=== PATIENT | female | born 1995 | race Caucasian/White ===

== ENCOUNTER 2020-08-12 13:48 | Emergency (ER) | payer OTHER ==
[~2020-08-12] VITALS: Ht 170.2 cm; Wt 86.4 kg
[2020-08-12] MEDS ORDERED: MACR100C43 PO (15:04)
[2020-08-12 15:09] VITALS: BP 132/81
== END 2020-08-12 15:11 | disposition home or self-care (01) ==
LOC: M ED 13:48
DX: N30.00 Acute cystitis without hematuria (principal); Z88.6 Allergy status to analgesic agent

== ENCOUNTER → 2020-12-12 | Outpatient (CLI) | payer OTHER ==
[~2020-12-12] MED LIST: MACR100C43 PO
[2020-12-12 12:17] LABS: FREE T4 0.96 NG/DL (0.76-1.46); THYROID STIMULATING HORMONE 3.94 uIU/ML (0.358-3.740)
[2020-12-12 12:37] LABS: PROGESTERONE 24.87 NG/ML
[2020-12-12 12:39] LABS: FOLLICLE STIMULATING HORMONE 1.7 mIU/mL; LUTEINIZING HORMONE 0.2 mIU/mL
== END ==
LOC: M PLALAB 08:41
PROVIDERS: ATTEND Specialist
DX: N92.6 Irregular menstruation, unspecified (principal)
CPT/HCPCS: 36415; 83001; 83002; 84144; 84146; 84439; 84443; G0463

== ENCOUNTER → 2020-12-14 | Outpatient (CLI) | payer OTHER | LOC: M PLALAB 13:13 | PROVIDERS: ATTEND Specialist | DX: N92.6 Irregular menstruation, unspecified (principal) ==

== ENCOUNTER → 2021-03-27 | Outpatient (CLI) | payer OTHER ==
[~2021-03-27] MED LIST changes: +ASCO1TAB3 PO; +CLAR10CA3 PO; +FAMO10TA53 PO; +MULTTAB20 PO; +ONDA4TAB6 PO; +REGL10TA6 PO
[2021-03-27 13:34] LABS: HEMATOCRIT 38.7 % (36.0-47.0); HEMOGLOBIN 13.2 g/dl (12.0-15.5); MEAN CORPUSCULAR HEMOGLOBIN 29.5 pg (27.0-33.0); MEAN CORPUSCULAR HGB CONC 34.1 g/dl (32.0-36.5); MEAN CORPUSCULAR VOLUME 86.6 fl (80.0-96.0); PLATELET COUNT, AUTOMATED 257 10^3/uL (150-450); RED BLOOD COUNT 4.47 10^6/uL (4.00-5.40); WHITE BLOOD COUNT 10.2 10^3/uL (4.0-10.0)
[2021-03-27 14:52] LABS: HEPATITIS C VIRUS ABY INDEX 0.1 INDEX (<0.8); HIV 1&2 SCREEN CENTAUR NEGATIVE (NEGATIVE)
[2021-03-27 15:11] LABS: GC DNA AMPLIFICATION NEGATIVE (NEGATIVE)
== END ==
LOC: M PLALAB 10:36
PROVIDERS: ATTEND Specialist
DX: Z34.02 Encounter for supervision of normal first pregnancy, second trimester (principal); Z3A.00 Weeks of gestation of pregnancy not specified

== ENCOUNTER → 2021-04-16 | Outpatient (CLI) | payer OTHER ==
[~2021-04-16] MED LIST changes: -ASCO1TAB3 PO; -CLAR10CA3 PO; -FAMO10TA53 PO; -MULTTAB20 PO; -ONDA4TAB6 PO; -REGL10TA6 PO
--- NOTE | 2021-04-16 17:52 | REP ---
INDICATION: ANATOMY COMPARISON: None. TECHNIQUE: Transabdominal obstetrical ultrasound with color Doppler evaluation. FINDINGS: Examination demonstrates a single live intrauterine in variable presentation. motion is identified by technologist. Placenta is noted anteriorly and grade 0 without evidence for placenta previa or abruption. Amniotic fluid volume is normal. Cervix measures 3.1 cm in length and appears closed. The technologist describes the uterus as being retroverted and included 3.3 cm and 5.7 cm fibroids. Selected gestational age: 21 weeks 4 days with EZE 08/23/2021. Gestational age by current measurements 21 weeks 1 day with EZE 08/26/2021. FHR equals 152 beats per minute. Estimated weight 407 grams (27thpercentile). Anatomical assessment was significantly limited due to the retroverted uterus and variable presentation of the fetus along with maternal body habitus. Visualized normal structures included cranium, choroid plexus, cerebellum, lungs, four-chamber heart/ventricular outflow tracts, diaphragm, stomach and abdominal wall, bladder, and extremities. The kidneys demonstrate pelviectasis. There was significantly limited evaluation of the cranial contents and facial features. IMPRESSION: 1. Retroverted uterus with multiple fibroids up to 5.7 cm. 2. Limited anatomical assessment due to uterine position and variable presentation of the fetus along with body habitus. <Electronically signed by Godfrey Snow > 04/16/21 [id number]
== END ==
LOC: M WHC 09:01
PROVIDERS: ATTEND Specialist
DX: Z34.02 Encounter for supervision of normal first pregnancy, second trimester (principal)

== ENCOUNTER 2021-04-21 03:56 | Emergency (ER) | payer OTHER ==
[~2021-04-21] VITALS: Ht 172.7 cm; Wt 89.5 kg
[2021-04-21 03:57] VITALS: BP 127/75
[2021-04-21] MEDS ORDERED: ASCO1TAB3 PO (04:03)
[2021-04-21] MEDS ORDERED: MULTTAB20 PO (04:03)
== END 2021-04-21 07:05 | disposition left against medical advice (07) ==
LOC: M ED 03:56
DX: Z53.21 Procedure and treatment not carried out due to patient leaving prior to being seen by health care provider (principal)

== ENCOUNTER 2021-05-02 11:50 | Outpatient (CLI) | payer OTHER ==
[~2021-05-02] VITALS: Ht 170.2 cm; Wt 92.4 kg
[~2021-05-02 11:50] MED LIST changes: -ONDA4TAB6 PO
[2021-05-02 12:49] VITALS: BP 188/101
[2021-05-02 12:51] VITALS: BP 139/63
[2021-05-02] MEDS ORDERED: ONDA4TAB6 PO (13:26)
[2021-05-02] MEDS ORDERED: HOME MED LIST COMPLETE! XX SCH (13:30)
[2021-05-06] MEDS ORDERED: REGL10TA6 PO (12:47)
[2021-05-06] MEDS ORDERED: MACR100C43 PO (12:47)
[2021-05-15] MEDS ORDERED: FAMO10TA53 PO (12:55)
[2021-06-07] MEDS ORDERED: CLAR10CA3 PO (14:22)
== END 2021-06-14 00:20 | disposition home or self-care (01) ==
LOC: M LDO 11:50
PROVIDERS: ATTEND Advanced Practice Midwife
DX: O26.892 Other specified pregnancy related conditions, second trimester (principal); R10.30 Lower abdominal pain, unspecified; Z3A.23 23 weeks gestation of pregnancy
CPT/HCPCS: 59025; 76816; 76817; G0378; G0463

== ENCOUNTER → 2021-05-02 | Outpatient (CLI) | payer OTHER ==
[~2021-05-02] MED LIST changes: +ASCO1TAB3 PO; +MULTTAB20 PO; +ONDA4TAB6 PO
== END ==
LOC: M WHC 08:09
PROVIDERS: ATTEND Specialist
DX: Z34.02 Encounter for supervision of normal first pregnancy, second trimester (principal); Z3A.23 23 weeks gestation of pregnancy

== ENCOUNTER 2021-05-15 10:19 | Emergency (ER) | payer OTHER ==
[~2021-05-15] VITALS: Ht 170.2 cm; Wt 92.8 kg
[~2021-05-15 10:19] MED LIST changes: +ONDA4TAB6 PO; +REGL10TA6 PO
[2021-05-15 11:12] LABS: BASO # 0.1 10^3/uL (0.0-0.2); BASO % 0.6 % (0.0-1.0); EOS # 0.1 10^3/uL (0.0-0.5); EOS % 0.5 % (0.0-3.0); HEMATOCRIT 36.6 % (36.0-47.0); HEMOGLOBIN 12.3 g/dl (12.0-15.5); LYMPH # 1.7 10^3/uL (1.5-5.0); LYMPH % 16.9 % (24.0-44.0); MEAN CORPUSCULAR HEMOGLOBIN 29.4 pg (27.0-33.0); MEAN CORPUSCULAR HGB CONC 33.6 g/dl (32.0-36.5); MEAN CORPUSCULAR VOLUME 87.4 fl (80.0-96.0); MONO # 0.7 10^3/uL (0.0-0.8); NEUTROPHILS # 7.2 10^3/uL (1.5-8.5); NEUTROPHILS % 74.3 % (36.0-66.0); PLATELET COUNT, AUTOMATED 253 10^3/uL (150-450); RED BLOOD COUNT 4.19 10^6/uL (4.00-5.40); WHITE BLOOD COUNT 9.7 10^3/uL (4.0-10.0)
[2021-05-15 11:15] LABS: APPEARANCE, URINE HAZY (CLEAR); BACTERIA, URINE AUTO NEGATIVE (NEGATIVE); BILIRUBIN, URINE AUTO NEGATIVE (NEGATIVE); BLOOD, URINE BLOOD NEGATIVE (NEGATIVE); COLOR, URINE YELLOW (YELLOW); GLUCOSE, URINE (UA) AUTO NEGATIVE (NEGATIVE); KETONE, URINE AUTO NEGATIVE (NEGATIVE); LEUKOCYTE ESTERASE, URINE AUTO 1+ (NEGATIVE); MUCUS, URINE SMALL (NEGATIVE); NITRITE, URINE AUTO NEGATIVE (NEGATIVE); PROTEIN, URINE AUTO NEGATIVE (NEGATIVE); RBC, URINE AUTO 2 /HPF (0-3); SPECIFIC GRAVITY URINE AUTO 1.006 (1.002-1.035); SQUAMOUS EPITHELIAL CELL UR AU 4 /HPF (0-6); UROBILINOGEN, URINE AUTO 0.2 mg/dL (0.0-2.0); WBC, URINE AUTO 18 /HPF (0-3)
[2021-05-15 11:22] LABS: INR 0.93; PROTHROMBIN TIME 12.9 SECONDS (12.7-14.5)
[2021-05-15 11:23] LABS: PARTIAL THROMBOPLASTIN TIME 26.1 SECONDS (25.9-37.0)
[2021-05-15 11:32] LABS: CREATININE,RANDOM URINE 55.7 MG/DL; TOTAL PROTEIN,RANDOM URINE 11.8 MG/DL (0.0-12.0)
[2021-05-15 11:35] LABS: ALBUMIN 2.8 GM/DL (3.2-5.2); ALT/SGPT 19 U/L (12-78); BILIRUBIN,DIRECT < 0.1 MG/DL (0.0-0.2); BILIRUBIN,TOTAL 0.2 MG/DL (0.2-1.0); BLOOD UREA NITROGEN 6 MG/DL (7-18); CALCIUM LEVEL 8.4 MG/DL (8.5-10.1); CARBON DIOXIDE LEVEL 19 MEQ/L (21-32); CHLORIDE LEVEL 110 MEQ/L (98-107); CREATININE FOR GFR 0.53 MG/DL (0.55-1.30); GLOMERULAR FILTRATION RATE > 60.0 (>60); GLUCOSE, FASTING 79 MG/DL (70-100); POTASSIUM SERUM 3.9 MEQ/L (3.5-5.1); SODIUM LEVEL 138 MEQ/L (136-145); TOTAL PROTEIN 6.7 GM/DL (6.4-8.2)
[2021-05-15 12:00] VITALS: BP 143/79
[2021-05-15] MEDS ORDERED: FAMO10TA53 PO (12:55)
== END 2021-05-15 12:19 | disposition admitted as inpatient to this hospital (09) ==
LOC: M ED 10:19
DX: O13.3 Gestational [pregnancy-induced] hypertension without significant proteinuria, third trimester (principal); R00.2 Palpitations; Z88.6 Allergy status to analgesic agent; Z3A.26 26 weeks gestation of pregnancy

== ENCOUNTER 2021-05-15 12:34 | Outpatient (CLI) | payer OTHER ==
[~2021-05-15] VITALS: Ht 170.2 cm; Wt 92.2 kg
[2021-05-15] MEDS ORDERED: FAMO10TA53 PO (12:55)
[2021-05-15 12:58] VITALS: BP 128/72
[2021-05-15] MEDS ORDERED: HOME MED LIST COMPLETE! XX SCH (13:00)
== END 2021-05-15 13:08 | disposition home or self-care (01) ==
LOC: M LDO 12:34
PROVIDERS: ATTEND Registered Nurse
DX: O26.892 Other specified pregnancy related conditions, second trimester (principal); Z3A.25 25 weeks gestation of pregnancy; R00.2 Palpitations; Z88.5 Allergy status to narcotic agent
CPT/HCPCS: 59025; G0378; G0463

== ENCOUNTER 2021-05-18 16:11 | Emergency (ER) | payer OTHER ==
[~2021-05-18] VITALS: Ht 170.2 cm; Wt 92.3 kg
[~2021-05-18 16:11] MED LIST changes: +FAMO10TA53 PO
[2021-05-18 19:03] LABS: BASO % 0.2 % (0.0-1.0); EOS # 0.1 10^3/uL (0.0-0.5); EOS % 0.6 % (0.0-3.0); HEMATOCRIT 38.5 % (36.0-47.0); HEMOGLOBIN 12.8 g/dl (12.0-15.5); LYMPH # 2.1 10^3/uL (1.5-5.0); LYMPH % 17.5 % (24.0-44.0); MEAN CORPUSCULAR HEMOGLOBIN 29.6 pg (27.0-33.0); MEAN CORPUSCULAR HGB CONC 33.2 g/dl (32.0-36.5); MEAN CORPUSCULAR VOLUME 89.1 fl (80.0-96.0); MONO # 0.9 10^3/uL (0.0-0.8); MONO % 7.7 % (2.0-8.0); NEUTROPHILS # 8.8 10^3/uL (1.5-8.5); NEUTROPHILS % 73.3 % (36.0-66.0); PLATELET COUNT, AUTOMATED 274 10^3/uL (150-450); RED BLOOD COUNT 4.32 10^6/uL (4.00-5.40)
[2021-05-18] MEDS ORDERED: ACETAMINOPHEN 325 MG TAB PO ONE (19:15)
[2021-05-18 19:28] LABS: ALBUMIN 2.8 GM/DL (3.2-5.2); ALT/SGPT 22 U/L (12-78); BILIRUBIN,DIRECT < 0.1 MG/DL (0.0-0.2); BILIRUBIN,TOTAL 0.4 MG/DL (0.2-1.0); BLOOD UREA NITROGEN 7 MG/DL (7-18); CALCIUM LEVEL 8.9 MG/DL (8.5-10.1); CARBON DIOXIDE LEVEL 23 MEQ/L (21-32); CHLORIDE LEVEL 109 MEQ/L (98-107); CREATININE FOR GFR 0.55 MG/DL (0.55-1.30); GLOMERULAR FILTRATION RATE > 60.0 (>60); GLUCOSE, FASTING 78 MG/DL (70-100); LIPASE 132 U/L (73-393); POTASSIUM SERUM 3.7 MEQ/L (3.5-5.1); SODIUM LEVEL 137 MEQ/L (136-145); TOTAL PROTEIN 6.7 GM/DL (6.4-8.2)
[2021-05-18 19:37] LABS: CREATININE,RANDOM URINE 73.9 MG/DL; TOTAL PROTEIN,RANDOM URINE 8.5 MG/DL (0.0-12.0)
[2021-05-18 21:12] VITALS: BP 119/78
== END 2021-05-18 21:13 | disposition home or self-care (01) ==
LOC: EDBD 16:11 → M ED 16:11
DX: R07.9 Chest pain, unspecified (principal); R51.9 Headache, unspecified; R10.11 Right upper quadrant pain; Z88.6 Allergy status to analgesic agent

== ENCOUNTER → 2021-06-13 | Outpatient (CLI) | payer OTHER ==
[~2021-06-13] VITALS: Ht 170.2 cm; Wt 94.0 kg
[~2021-06-13] MED LIST changes: +CETI10CH PO; +CLAR10CA3 PO
[2021-06-13 23:41] VITALS: BP 124/69
== END ==
LOC: M LDO 23:23
PROVIDERS: ATTEND Obstetrics & Gynecology
DX: O36.8130 Decreased fetal movements, third trimester, not applicable or unspecified (principal); Z3A.29 29 weeks gestation of pregnancy; Z88.5 Allergy status to narcotic agent
CPT/HCPCS: 59025; G0378; G0463

== ENCOUNTER 2021-06-14 04:07 | Emergency (ER) | payer OTHER ==
[~2021-06-14] VITALS: Ht 170.2 cm; Wt 92.3 kg
[~2021-06-14 04:07] MED LIST changes: -CETI10CH PO
[2021-06-14] MEDS ORDERED: ACETAMINOPHEN *IV* 1,000 MG in IV 1 EA IV ONE (04:35)
[2021-06-14] MEDS ORDERED: diazePAM 10MG/2ML SYRINGE (J3360 PER 5MG) IV ONE (04:35)
[2021-06-14 05:02] LABS: BASO # 0.1 10^3/uL (0.0-0.2); BASO % 0.5 % (0.0-1.0); EOS # 0.1 10^3/uL (0.0-0.5); EOS % 1.1 % (0.0-3.0); HEMATOCRIT 35.3 % (36.0-47.0); HEMOGLOBIN 11.8 g/dl (12.0-15.5); LYMPH # 2.2 10^3/uL (1.5-5.0); LYMPH % 19.7 % (24.0-44.0); MEAN CORPUSCULAR HEMOGLOBIN 29.6 pg (27.0-33.0); MEAN CORPUSCULAR HGB CONC 33.4 g/dl (32.0-36.5); MEAN CORPUSCULAR VOLUME 88.5 fl (80.0-96.0); MONO # 1.1 10^3/uL (0.0-0.8); MONO % 9.8 % (2.0-8.0); NEUTROPHILS # 7.5 10^3/uL (1.5-8.5); NEUTROPHILS % 67.5 % (36.0-66.0); PLATELET COUNT, AUTOMATED 235 10^3/uL (150-450); RED BLOOD COUNT 3.99 10^6/uL (4.00-5.40); WHITE BLOOD COUNT 11.1 10^3/uL (4.0-10.0)
[2021-06-14 05:13] LABS: INR 0.95; PARTIAL THROMBOPLASTIN TIME 24.7 SECONDS (25.9-37.0); PROTHROMBIN TIME 13.1 SECONDS (12.7-14.5)
[2021-06-14 05:16] LABS: AMORPHOUS SEDIMENT SMALL (NEGATIVE); APPEARANCE, URINE CLEAR (CLEAR); BACTERIA, URINE AUTO NEGATIVE (NEGATIVE); BILIRUBIN, URINE AUTO NEGATIVE (NEGATIVE); BLOOD, URINE BLOOD NEGATIVE (NEGATIVE); COLOR, URINE YELLOW (YELLOW); GLUCOSE, URINE (UA) AUTO NEGATIVE (NEGATIVE); KETONE, URINE AUTO NEGATIVE (NEGATIVE); LEUKOCYTE ESTERASE, URINE AUTO TRACE (NEGATIVE); MUCUS, URINE SMALL (NEGATIVE); NITRITE, URINE AUTO NEGATIVE (NEGATIVE); PROTEIN, URINE AUTO NEGATIVE (NEGATIVE); RBC, URINE AUTO 1 /HPF (0-3); SPECIFIC GRAVITY URINE AUTO 1.008 (1.002-1.035); SQUAMOUS EPITHELIAL CELL UR AU 2 /HPF (0-6); UROBILINOGEN, URINE AUTO 0.2 mg/dL (0.0-2.0); WBC, URINE AUTO 21 /HPF (0-3)
[2021-06-14 05:37] LABS: CREATININE,RANDOM URINE 75.9 MG/DL; TOTAL PROTEIN,RANDOM URINE 13.5 MG/DL (0.0-12.0)
[2021-06-14 05:44] LABS: ALBUMIN 1.6 GM/DL (3.2-5.2); ALT/SGPT 17 U/L (12-78); BILIRUBIN,DIRECT < 0.1 MG/DL (0.0-0.2); BILIRUBIN,TOTAL < 0.1 MG/DL (0.2-1.0); BLOOD UREA NITROGEN 3 MG/DL (7-18); CALCIUM LEVEL 5.4 MG/DL (8.5-10.1); CARBON DIOXIDE LEVEL 16 MEQ/L (21-32); CHLORIDE LEVEL 125 MEQ/L (98-107); GLOMERULAR FILTRATION RATE > 60.0 (>60); GLUCOSE, FASTING 61 MG/DL (70-100); MAGNESIUM LEVEL 1.1 MG/DL (1.8-2.4); POTASSIUM SERUM 2.5 MEQ/L (3.5-5.1); SODIUM LEVEL 148 MEQ/L (136-145); URIC ACID 2.1 MG/DL (2.6-6.0)
[2021-06-14 06:36] LABS: BLOOD UREA NITROGEN 6 MG/DL (7-18); CALCIUM LEVEL 7.9 MG/DL (8.5-10.1); CARBON DIOXIDE LEVEL 22 MEQ/L (21-32); CHLORIDE LEVEL 111 MEQ/L (98-107); CREATININE FOR GFR 0.52 MG/DL (0.55-1.30); GLOMERULAR FILTRATION RATE > 60.0 (>60); GLUCOSE, FASTING 97 MG/DL (70-100); MAGNESIUM LEVEL 1.8 MG/DL (1.8-2.4); POTASSIUM SERUM 3.4 MEQ/L (3.5-5.1); SODIUM LEVEL 139 MEQ/L (136-145)
[2021-06-14 06:45] VITALS: BP 123/61
== END 2021-06-14 07:05 | disposition home or self-care (01) ==
LOC: M ED 04:07
DX: R55 Syncope and collapse (principal); G44.209 Tension-type headache, unspecified, not intractable; Z79.899 Other long term (current) drug therapy
CPT/HCPCS: 80048; 80076; 81001; 82570; 83735; 84156; 84550; 85025; 85384; 85610; 85730; 86850; 86900; 86901; 87086; 93005; 93041; 94760; 96374; 96375; 99285; J0131; J3360

== ENCOUNTER 2021-06-26 07:38 | Emergency (ER) | payer OTHER ==
[~2021-06-26] VITALS: Ht 170.2 cm; Wt 95.5 kg
[~2021-06-26 07:38] MED LIST changes: +CETI10CH PO
[2021-06-26 07:39] VITALS: BP 120/77
[2021-06-26] MEDS ORDERED: ACETAMINOPHEN 325 MG TAB PO ONE (08:15)
[2021-06-26 09:40] LABS: RSV AMPLIFICATION NEGATIVE (NEGATIVE)
[2021-06-27] MEDS ORDERED: AMOX875T2 PO (13:05)
== END 2021-06-26 10:29 | disposition home or self-care (01) ==
LOC: M ED 07:38
DX: J35.8 Other chronic diseases of tonsils and adenoids (principal); J01.90 Acute sinusitis, unspecified

== ENCOUNTER 2021-06-27 11:30 | Inpatient (IN) | payer OTHER ==
[~2021-06-27] VITALS: Ht 170.2 cm; Wt 94.4 kg
[2021-06-27 12:02] LABS: BASO # 0.1 10^3/uL (0.0-0.2); BASO % 0.7 % (0.0-1.0); EOS # 0.2 10^3/uL (0.0-0.5); EOS % 2.3 % (0.0-3.0); LYMPH # 2.3 10^3/uL (1.5-5.0); MEAN CORPUSCULAR HEMOGLOBIN 29.8 pg (27.0-33.0); MEAN CORPUSCULAR HGB CONC 34.3 g/dl (32.0-36.5); MEAN CORPUSCULAR VOLUME 86.8 fl (80.0-96.0); MONO # 0.9 10^3/uL (0.0-0.8); MONO % 8.5 % (2.0-8.0); NEUTROPHILS % 65.4 % (36.0-66.0); PLATELET COUNT, AUTOMATED 243 10^3/uL (150-450); RED BLOOD COUNT 4.03 10^6/uL (4.00-5.40); WHITE BLOOD COUNT 10.6 10^3/uL (4.0-10.0)
[2021-06-27 12:13] LABS: INR 0.98; PARTIAL THROMBOPLASTIN TIME 26.5 SECONDS (25.9-37.0); PROTHROMBIN TIME 13.4 SECONDS (12.7-14.5)
[2021-06-27 12:32] LABS: CK-MB VALUE MASS < 1.0 NG/ML (<3.6); CPK CREATINE PHOSPHOKINASE 31 U/L (26-192); MB/CK RELATIVE INDEX 3.23 (< OR =4)
[2021-06-27 12:33] LABS: ALBUMIN 2.6 GM/DL (3.2-5.2); ALT/SGPT 23 U/L (12-78); AMYLASE 48 U/L (25-115); BILIRUBIN,DIRECT < 0.1 MG/DL (0.0-0.2); BILIRUBIN,TOTAL 0.2 MG/DL (0.2-1.0); LIPASE 121 U/L (73-393); TOTAL PROTEIN 6.3 GM/DL (6.4-8.2)
[2021-06-27] MEDS: LR 1,000 ML IV SCH ×2 (12:33→19:05)
[2021-06-27 12:55] LABS: RSV AMPLIFICATION NEGATIVE (NEGATIVE)
[2021-06-27] MEDS ORDERED: AMOX875T2 PO (13:05)
[2021-06-27] MEDS ORDERED: HOME MED LIST COMPLETE! XX SCH (13:10)
[2021-06-28] MEDS ORDERED: guaiFENesin 200 MG TAB PO PRN (04:35)
[2021-06-28] MEDS ORDERED: CETIRIZINE (ZyrTEC) 10 MG TAB PO ONE (04:35)
[2021-06-28] MEDS ORDERED: SODIUM CHLORIDE NASAL 0.65% SPRAY BTL (OCEAN) PRN (04:35)
[2021-06-28] MEDS: LR 1,000 ML IV SCH ×3 (04:58→15:57)
[2021-06-28] MEDS ORDERED: ANALGESIC BALM CRM 3OZ TOP PRN (06:45)
[2021-06-28] MEDS ORDERED: LIDOCAINE 5% (LIDODERM) PATCH TD ONE (07:30)
[2021-06-28 14:00] VITALS: BP 123/69
[2021-06-28] MEDS ORDERED: AMPI500C9 PO (17:11)
[2021-06-28] MEDS ORDERED: **NOTE PATIENT COMMENT** MISC XX ONE (21:00)
== END 2021-06-28 17:45 | disposition home or self-care (01) | DRG 833 ==
LOC: EDBD 11:30 → M ED 12:07 → M ED INP 12:44
PROVIDERS: ADMIT Advanced Practice Midwife; ATTEND Advanced Practice Midwife
DX: O26.899 Other specified pregnancy related conditions, unspecified trimester (principal); Z3A.31 31 weeks gestation of pregnancy; R10.2 Pelvic and perineal pain

== ENCOUNTER 2021-07-10 04:16 | Emergency (ER) | payer OTHER ==
[~2021-07-10 04:16] MED LIST changes: +AMOX875T2 PO; +AMPI500C9 PO
[2021-07-10 04:17] VITALS: BP 131/84
[2021-07-10] MEDS ORDERED: PREN1CHW PO (04:24)
[2021-07-10] MEDS ORDERED: ZOLO25TA PO (07:25)
[2021-07-10] MEDS ORDERED: CYCL5TAB PO (07:25)
[2021-07-10] MEDS ORDERED: ALLE180T33 PO (07:25)
== END 2021-07-10 04:30 | disposition admitted as inpatient to this hospital (09) ==
LOC: M ED 04:16
DX: Z53.21 Procedure and treatment not carried out due to patient leaving prior to being seen by health care provider (principal)

== ENCOUNTER 2021-07-10 04:34 | Outpatient (CLI) | payer OTHER ==
[~2021-07-10] VITALS: Ht 170.2 cm; Wt 95.2 kg
[~2021-07-10 04:34] MED LIST changes: +PREN1CHW PO
[2021-07-10 05:02] VITALS: BP 121/84
[2021-07-10 06:39] LABS: HEMATOCRIT 35.8 % (36.0-47.0); MEAN CORPUSCULAR HEMOGLOBIN 29.1 pg (27.0-33.0); MEAN CORPUSCULAR HGB CONC 33.5 g/dl (32.0-36.5); MEAN CORPUSCULAR VOLUME 86.9 fl (80.0-96.0); PLATELET COUNT, AUTOMATED 233 10^3/uL (150-450); RED BLOOD COUNT 4.12 10^6/uL (4.00-5.40); WHITE BLOOD COUNT 13.5 10^3/uL (4.0-10.0)
[2021-07-10 07:02] LABS: ALBUMIN 2.6 GM/DL (3.2-5.2); ALT/SGPT 23 U/L (12-78); BILIRUBIN,TOTAL 0.2 MG/DL (0.2-1.0); BLOOD UREA NITROGEN 6 MG/DL (7-18); CALCIUM LEVEL 8.9 MG/DL (8.5-10.1); CARBON DIOXIDE LEVEL 24 MEQ/L (21-32); CHLORIDE LEVEL 110 MEQ/L (98-107); CREATININE FOR GFR 0.57 MG/DL (0.55-1.30); GLOMERULAR FILTRATION RATE > 60.0 (>60); GLUCOSE, FASTING 85 MG/DL (70-100); POTASSIUM SERUM 3.9 MEQ/L (3.5-5.1); SODIUM LEVEL 141 MEQ/L (136-145); TOTAL PROTEIN 6.8 GM/DL (6.4-8.2)
[2021-07-10] MEDS ORDERED: ALLE180T33 PO (07:25)
[2021-07-10] MEDS ORDERED: CYCL5TAB PO (07:25)
[2021-07-10] MEDS ORDERED: ZOLO25TA PO (07:25)
[2021-07-10 07:30] LABS: AMYLASE 60 U/L (25-115); LIPASE 148 U/L (73-393)
== END 2021-07-10 07:30 | disposition home or self-care (01) ==
LOC: M LDO 04:34
PROVIDERS: ATTEND Obstetrics & Gynecology
DX: O26.893 Other specified pregnancy related conditions, third trimester (principal); Z3A.33 33 weeks gestation of pregnancy; M25.562 Pain in left knee; R07.89 Other chest pain; R06.02 Shortness of breath; O99.343 Other mental disorders complicating pregnancy, third trimester; F41.0 Panic disorder [episodic paroxysmal anxiety]; Z88.5 Allergy status to narcotic agent
CPT/HCPCS: 36415; 59025; 80053; 81001; 82150; 83690; 85027; 87086; G0463

== ENCOUNTER 2021-07-14 21:35 | Emergency (ER) | payer OTHER ==
[~2021-07-14] VITALS: Ht 170.2 cm; Wt 94.0 kg
[~2021-07-14 21:35] MED LIST changes: +ALLE180T33 PO; +CYCL5TAB PO; +ZOLO25TA PO
[2021-07-14 21:36] VITALS: BP 150/78
[2021-07-14] MEDS ORDERED: BLAC1CAP2 PO (22:55)
[2021-07-14] MEDS ORDERED: CLAR5TAB11 PO (22:55)
[2021-07-15] MEDS ORDERED: FIOR1CAP PO (00:38)
== END 2021-07-14 22:14 | disposition left against medical advice (07) ==
LOC: M ED 21:35
DX: Z53.21 Procedure and treatment not carried out due to patient leaving prior to being seen by health care provider (principal)

== ENCOUNTER 2021-07-14 21:55 | Outpatient (CLI) | payer OTHER ==
[~2021-07-14] VITALS: Ht 170.2 cm; Wt 94.0 kg
[2021-07-14 22:15] VITALS: BP 134/90
[2021-07-14 22:24] VITALS: BP 130/83
[2021-07-14 22:29] VITALS: BP 131/73
[2021-07-14] MEDS ORDERED: CLAR5TAB11 PO (22:55)
[2021-07-14] MEDS ORDERED: BLAC1CAP2 PO (22:55)
[2021-07-15] MEDS ORDERED: FIOR1CAP PO (00:38)
== END 2021-07-14 23:05 | disposition home or self-care (01) ==
LOC: M LDO 21:55
PROVIDERS: ATTEND Registered Nurse
DX: O26.893 Other specified pregnancy related conditions, third trimester (principal); R51.9 Headache, unspecified; Z3A.34 34 weeks gestation of pregnancy; M94.0 Chondrocostal junction syndrome [Tietze]; Z88.5 Allergy status to narcotic agent
CPT/HCPCS: 59025; G0378; G0463

== ENCOUNTER 2021-07-14 23:08 | Emergency (ER) | payer OTHER ==
[~2021-07-14] VITALS: Ht 170.2 cm; Wt 94.1 kg
[~2021-07-14 23:08] MED LIST changes: +BLAC1CAP2 PO; +CLAR5TAB11 PO
[2021-07-14 23:09] VITALS: BP 128/82
[2021-07-15] MEDS ORDERED: FIORICET TAB PO ONE (00:35)
[2021-07-15] MEDS ORDERED: FIOR1CAP PO (00:38)
== END 2021-07-15 01:28 | disposition home or self-care (01) ==
LOC: M ED 23:08
DX: G43.909 Migraine, unspecified, not intractable, without status migrainosus (principal); M94.0 Chondrocostal junction syndrome [Tietze]; Z88.6 Allergy status to analgesic agent; Z79.899 Other long term (current) drug therapy

== ENCOUNTER 2021-08-12 15:19 | Outpatient (CLI) | payer OTHER ==
[~2021-08-12] VITALS: Ht 170.2 cm; Wt 94.4 kg
[~2021-08-12 15:19] MED LIST changes: +FIOR1CAP PO
[2021-08-12 16:49] LABS: APPEARANCE, URINE HAZY (CLEAR); BACTERIA, URINE AUTO NEGATIVE (NEGATIVE); BILIRUBIN, URINE AUTO NEGATIVE (NEGATIVE); BLOOD, URINE BLOOD NEGATIVE (NEGATIVE); COLOR, URINE YELLOW (YELLOW); GLUCOSE, URINE (UA) AUTO NEGATIVE (NEGATIVE); KETONE, URINE AUTO NEGATIVE (NEGATIVE); LEUKOCYTE ESTERASE, URINE AUTO 1+ (NEGATIVE); MUCUS, URINE SMALL (NEGATIVE); NITRITE, URINE AUTO NEGATIVE (NEGATIVE); PROTEIN, URINE AUTO NEGATIVE (NEGATIVE); RBC, URINE AUTO 1 /HPF (0-3); SPECIFIC GRAVITY URINE AUTO 1.008 (1.002-1.035); SQUAMOUS EPITHELIAL CELL UR AU 8 /HPF (0-6); UROBILINOGEN, URINE AUTO 0.2 mg/dL (0.0-2.0); WBC, URINE AUTO 9 /HPF (0-3)
[2021-08-12] MEDS ORDERED: ACETAMINOPHEN TAB 650MG DOSE (2X325MG) PO ONE (18:25)
[2021-08-12] MEDS ORDERED: FIORICET TAB PO ONE (18:25)
== END 2021-08-12 19:42 | disposition home or self-care (01) ==
LOC: M LDO 15:19
PROVIDERS: ATTEND Registered Nurse
DX: O26.893 Other specified pregnancy related conditions, third trimester (principal); R10.9 Unspecified abdominal pain; O99.353 Diseases of the nervous system complicating pregnancy, third trimester; G43.909 Migraine, unspecified, not intractable, without status migrainosus; M54.9 Dorsalgia, unspecified; Z3A.38 38 weeks gestation of pregnancy; Z88.8 Allergy status to other drugs, medicaments and biological substances
CPT/HCPCS: 59025; 76775; 81001; 87086; G0378; G0463

== ENCOUNTER 2021-08-26 01:16 | Outpatient (CLI) | payer OTHER | END 2021-08-26 03:00 | disposition home or self-care (01) | LOC: M LDO 01:16 | PROVIDERS: ATTEND Obstetrics & Gynecology | DX: O47.1 False labor at or after 37 completed weeks of gestation (principal); Z3A.40 40 weeks gestation of pregnancy; O48.0 Post-term pregnancy; Z88.5 Allergy status to narcotic agent | CPT/HCPCS: 59025; 76815; G0463 ==

== ENCOUNTER 2021-08-30 21:24 | Inpatient (IN) | payer OTHER ==
[~2021-08-30] VITALS: Ht 170.2 cm; Wt 98.0 kg
[2021-08-30] MEDS ORDERED: HOME MED LIST COMPLETE! XX SCH (22:25)
[2021-08-30] MEDS ORDERED: LIDOCAINE 1% MDV 20ML VIAL INFIL PRN (22:50)
[2021-08-30] MEDS ORDERED: OXYTOCIN DRIP 30 UNITS in IV 1 EA IV PRN ×4 (22:50)
[2021-08-30] MEDS: LR 1,000 ML IV SCH (22:50)
[2021-08-30] MEDS: miSOPROStol 25MCG 1/4 TABLET PO SCH (23:38)
[2021-08-31] VITALS (38 sets, daily range): BP systolic 120–161; BP diastolic 62–94
[2021-08-31 00:07] LABS: HEMATOCRIT 39.9 % (36.0-47.0); HEMOGLOBIN 12.9 g/dl (12.0-15.5); MEAN CORPUSCULAR HEMOGLOBIN 28.7 pg (27.0-33.0); MEAN CORPUSCULAR HGB CONC 32.3 g/dl (32.0-36.5); MEAN CORPUSCULAR VOLUME 88.7 fl (80.0-96.0); PLATELET COUNT, AUTOMATED 237 10^3/uL (150-450); WHITE BLOOD COUNT 12.5 10^3/uL (4.0-10.0)
[2021-08-31] MEDS: miSOPROStol 25MCG 1/4 TABLET PO SCH ×3 (02:51→10:50)
[2021-08-31] MEDS: LR 1,000 ML IV SCH ×4 (06:50→19:25)
[2021-08-31] MEDS ORDERED: ACETAMINOPHEN 500 MG TAB PO ONE (09:30)
[2021-08-31] MEDS ORDERED: OXYTOCIN DRIP 30 UNITS in IV 1 EA IV SCH (11:35)
[2021-08-31] MEDS ORDERED: LR 1,000 ML IV ONE (11:35)
[2021-08-31] MEDS ORDERED: FENTANYL 2MCG/ML ROPIVACAINE 0.2% IN 0.9% NACL 100ML IVBAG As Ordered ONE (13:51)
[2021-08-31] MEDS ORDERED: ePHEDrine SULFATE 25 MG/5 ML(5MG/ML) SYRINGE IV PRN (14:50)
[2021-08-31] MEDS ORDERED: diphenhydrAMINE 50MG/ML VIAL (J1200) IV PRN (14:50)
[2021-08-31] MEDS ORDERED: EPIDURAL COMMENT XX SCH (14:50)
[2021-08-31] MEDS ORDERED: NALOXONE INJ 0.4MG/1ML VIAL (J2310 PER 1MG) IV PRN (14:50)
[2021-08-31] MEDS ORDERED: EPIDURAL/PCA KEYS XX PRN (14:50)
[2021-08-31] MEDS ORDERED: REFRIGERATOR IV KEYS XX PRN (14:50)
[2021-08-31] MEDS ORDERED: ONDANSETRON 4MG/2ML VIAL IV PRN (14:50)
[2021-08-31] MEDS ORDERED: LACTATED RINGER'S 1000 ML IV PRN (14:50)
[2021-08-31] MEDS: FENTANYL/ROPIVACAINE/NACL BAG 100 ML EPIDURAL SCH ×2 (15:17→23:48)
[2021-08-31] MEDS ORDERED: OXYTOCIN INJ 10 UNITS/ML VIAL (J2590) As Ordered ONE (18:17)
[2021-08-31] MEDS ORDERED: OXYTOCIN INJ 10 UNITS/ML VIAL (J2590) IV ONE (18:25)
[2021-09-01] VITALS (24 sets, daily range): BP systolic 130–171; BP diastolic 73–94
[2021-09-01 06:56] LABS: CORD GAS HCO3 V 17.6 MEQ/L; CORD GAS O2 SAT V 53.7 %; CORD GAS PCO2 V 44.7 mmHg; CORD GAS PH V 7.213 UNITS; CORD GAS PO2 V 26.7 mmHg; CORD GAS SBC V 15.7 MEQ/L
[2021-09-01 06:59] LABS: CORD GAS ABE A -11.6; CORD GAS HCO3 A 14.7 MEQ/L; CORD GAS O2 SAT A 77.9 %; CORD GAS PH A 7.241 UNITS; CORD GAS PO2 A 39.4 mmHg; CORD GAS SBC A 15.1 MEQ/L; CORD GAS TCO2 A 15.8 MEQ/L
[2021-09-01] MEDS ORDERED: MOM 30ML SUSPENSION UDC PO PRN (07:00)
[2021-09-01] MEDS ORDERED: DOCUSATE SODIUM 100MG CAPSULE PO PRN (07:00)
[2021-09-01] MEDS ORDERED: MEASLES,MUMPS,RUBELLA VACCINE INJ (MMR-II) (90707) SC SCH (07:00)
[2021-09-01] MEDS ORDERED: OXYTOCIN DRIP 30 UNITS in IV 1 EA IV SCH (07:00)
[2021-09-01] MEDS ORDERED: METHYLERGONOVINE MALEATE 0.2 MG TAB PO PRN (07:00)
[2021-09-01] MEDS ORDERED: DIBUCAINE 1% OINTMENT 30GM TOP PRN (07:00)
[2021-09-01] MEDS ORDERED: ANUSOL HC CREAM 30GM TOP PRN (07:00)
[2021-09-01] MEDS ORDERED: LR 1,000 ML IV SCH (07:00)
[2021-09-01] MEDS ORDERED: ACETAMINOPHEN TAB 650MG DOSE (2X325MG) PO PRN (07:00)
[2021-09-01] MEDS ORDERED: OXYTOCIN DRIP 30 UNITS in IV 1 EA IV ONE (07:00)
[2021-09-01] MEDS ORDERED: OXYTOCIN INJ 10 UNITS/ML VIAL (J2590) IV ONE (07:00)
[2021-09-01] MEDS ORDERED: RHOGAM 300 MCG (1500 IU) INJ (J2790) IM SCH (07:00)
[2021-09-01] MEDS: PRENATAL VITAMINS CHEWABLE TABLET PO SCH (07:50)
[2021-09-01] MEDS: IBUPROFEN 600MG TAB PO PRN (07:50)
[2021-09-01] MEDS: ACETAMINOPHEN 500 MG TAB PO PRN (18:05)
[2021-09-02] MEDS: ACETAMINOPHEN 500 MG TAB PO PRN ×4 (01:16→20:24)
[2021-09-02 06:00] VITALS: BP 118/70
[2021-09-02 06:46] LABS: HEMATOCRIT 37.2 % (36.0-47.0); HEMOGLOBIN 12.3 g/dl (12.0-15.5); MEAN CORPUSCULAR HEMOGLOBIN 29.6 pg (27.0-33.0); MEAN CORPUSCULAR HGB CONC 33.1 g/dl (32.0-36.5); MEAN CORPUSCULAR VOLUME 89.6 fl (80.0-96.0); PLATELET COUNT, AUTOMATED 191 10^3/uL (150-450); RED BLOOD COUNT 4.15 10^6/uL (4.00-5.40)
[2021-09-02] MEDS: PRENATAL VITAMINS CHEWABLE TABLET PO SCH (07:49)
[2021-09-02] MEDS: IBUPROFEN 600MG TAB PO PRN ×2 (13:59→20:25)
[2021-09-02 18:05] VITALS: BP 129/80
[2021-09-02] MEDS ORDERED: METOCLOPRAMIDE 10MG TAB PO ONE (20:00)
[2021-09-02] MEDS ORDERED: diphenhydrAMINE 25MG CAP PO ONE (20:00)
[2021-09-03 06:00] VITALS: BP 129/87
[2021-09-03] MEDS ORDERED: IBUP-1022 PO (07:11)
[2021-09-03] MEDS ORDERED: REGL5TAB2 PO (07:11)
[2021-09-03] MEDS ORDERED: ACET-683 PO (07:11)
[2021-09-03] MEDS ORDERED: COLA100C5 PO (07:11)
[2021-09-03] MEDS ORDERED: BENA25CA4 PO (07:12)
[2021-09-03] MEDS: PRENATAL VITAMINS CHEWABLE TABLET PO SCH (07:37)
[2021-09-03] MEDS: ACETAMINOPHEN 500 MG TAB PO PRN (11:35)
== END 2021-09-03 11:55 | disposition home or self-care (01) | DRG 807 ==
LOC: M LDI 21:24 → M OBS 09-01 09:34
PROVIDERS: ADMIT Obstetrics & Gynecology; ATTEND Obstetrics & Gynecology
PROC: 3E0DXGC Introduction of Other Therapeutic Substance into Mouth and Pharynx, External Approach (ICD-10-PCS; 2021-08-30)
PROC: 10E0XZZ Delivery of Products of Conception, External Approach (ICD-10-PCS; principal; 2021-09-01)
DX: O48.0 Post-term pregnancy (principal); Z37.0 Single live birth; Z3A.41 41 weeks gestation of pregnancy; Z88.5 Allergy status to narcotic agent; O69.2XX0 Labor and delivery complicated by other cord entanglement, with compression, not applicable or unspecified

== ENCOUNTER 2021-09-05 23:37 | Emergency (ER) | payer OTHER ==
[~2021-09-05] VITALS: Ht 170.2 cm; Wt 90.9 kg
[~2021-09-05 23:37] MED LIST changes: +ACET-683 PO; +BENA25CA4 PO; +COLA100C5 PO; +IBUP-1022 PO; +REGL5TAB2 PO
[2021-09-05 23:43] VITALS: BP 163/98
== END 2021-09-06 00:19 | disposition left against medical advice (07) ==
LOC: M ED 23:37
DX: Z53.21 Procedure and treatment not carried out due to patient leaving prior to being seen by health care provider (principal)

== ENCOUNTER 2021-09-25 17:27 | Emergency (ER) | payer OTHER ==
[~2021-09-25] VITALS: Ht 170.2 cm; Wt 89.9 kg
[2021-09-25] MEDS ORDERED: MULTTAB20 PO (17:38)
[2021-09-25 18:41] LABS: BASO # 0.1 10^3/uL (0.0-0.2); EOS # 0.2 10^3/uL (0.0-0.5); EOS % 2.3 % (0.0-3.0); HEMOGLOBIN 14.3 g/dl (12.0-15.5); LYMPH # 2.1 10^3/uL (1.5-5.0); MEAN CORPUSCULAR HEMOGLOBIN 28.7 pg (27.0-33.0); MEAN CORPUSCULAR HGB CONC 32.5 g/dl (32.0-36.5); MEAN CORPUSCULAR VOLUME 88.2 fl (80.0-96.0); MONO # 0.8 10^3/uL (0.0-0.8); MONO % 9.8 % (2.0-8.0); NEUTROPHILS # 4.6 10^3/uL (1.5-8.5); NEUTROPHILS % 59.4 % (36.0-66.0); PLATELET COUNT, AUTOMATED 305 10^3/uL (150-450); RED BLOOD COUNT 4.99 10^6/uL (4.00-5.40); WHITE BLOOD COUNT 7.7 10^3/uL (4.0-10.0)
[2021-09-25 19:08] LABS: BLOOD UREA NITROGEN 16 MG/DL (7-18); CALCIUM LEVEL 9.6 MG/DL (8.5-10.1); CARBON DIOXIDE LEVEL 22 MEQ/L (21-32); CHLORIDE LEVEL 111 MEQ/L (98-107); CREATININE FOR GFR 0.77 MG/DL (0.55-1.30); GLOMERULAR FILTRATION RATE > 60.0 (>60); GLUCOSE, FASTING 89 MG/DL (70-100); POTASSIUM SERUM 4.7 MEQ/L (3.5-5.1); SODIUM LEVEL 141 MEQ/L (136-145)
[2021-09-25] MEDS ORDERED: LIDOCAINE 2% MDV 20ML VIAL SC ONE (19:35)
[2021-09-25 20:30] VITALS: BP 136/88
[2021-09-25] MEDS ORDERED: MEDR4PAK PO (20:53)
== END 2021-09-25 21:08 | disposition home or self-care (01) ==
LOC: M ED 17:27
DX: M54.81 Occipital neuralgia (principal); Z79.899 Other long term (current) drug therapy

== ENCOUNTER 2021-10-05 02:14 | Emergency (ER) | payer OTHER ==
[~2021-10-05] VITALS: Ht 170.2 cm; Wt 90.0 kg
[~2021-10-05 02:14] MED LIST changes: +MEDR4PAK PO
[2021-10-05 02:51] LABS: BASO # 0.1 10^3/uL (0.0-0.2); BASO % 0.9 % (0.0-1.0); EOS # 0.2 10^3/uL (0.0-0.5); EOS % 2.2 % (0.0-3.0); HEMATOCRIT 41.5 % (36.0-47.0); HEMOGLOBIN 13.8 g/dl (12.0-15.5); LYMPH # 3.4 10^3/uL (1.5-5.0); LYMPH % 36.2 % (24.0-44.0); MEAN CORPUSCULAR HEMOGLOBIN 29.3 pg (27.0-33.0); MEAN CORPUSCULAR HGB CONC 33.3 g/dl (32.0-36.5); MEAN CORPUSCULAR VOLUME 88.1 fl (80.0-96.0); MONO # 0.8 10^3/uL (0.0-0.8); MONO % 8.7 % (2.0-8.0); NEUTROPHILS # 4.8 10^3/uL (1.5-8.5); NEUTROPHILS % 51.5 % (36.0-66.0); PLATELET COUNT, AUTOMATED 265 10^3/uL (150-450); RED BLOOD COUNT 4.71 10^6/uL (4.00-5.40); WHITE BLOOD COUNT 9.3 10^3/uL (4.0-10.0)
[2021-10-05 03:16] LABS: BLOOD UREA NITROGEN 14 MG/DL (7-18); CARBON DIOXIDE LEVEL 24 MEQ/L (21-32); CHLORIDE LEVEL 110 MEQ/L (98-107); CREATININE FOR GFR 0.79 MG/DL (0.55-1.30); GLOMERULAR FILTRATION RATE > 60.0 (>60); GLUCOSE, FASTING 92 MG/DL (70-100); POTASSIUM SERUM 3.9 MEQ/L (3.5-5.1); SODIUM LEVEL 141 MEQ/L (136-145)
[2021-10-05 03:20] LABS: CK-MB VALUE MASS < 1.0 NG/ML (<3.6); CPK CREATINE PHOSPHOKINASE 59 U/L (26-192); MB/CK RELATIVE INDEX 1.69 (< OR =4)
[2021-10-05 05:23] VITALS: BP 148/82
== END 2021-10-05 05:32 | disposition left against medical advice (07) ==
LOC: M ED 02:14
DX: Z53.21 Procedure and treatment not carried out due to patient leaving prior to being seen by health care provider (principal)

== ENCOUNTER 2021-10-11 10:45 | Emergency (ER) | payer OTHER ==
[~2021-10-11] VITALS: Ht 170.2 cm; Wt 90.0 kg
[2021-10-11] MEDS ORDERED: ONDANSETRON 4MG 2ML VIAL IV ONE (12:10)
[2021-10-11] MEDS ORDERED: KETOROLAC 30 MG/ML 1ML VIAL IV ONE (12:10)
[2021-10-11] MEDS ORDERED: NS 1,000 ML IV ONE (12:10)
[2021-10-11] MEDS ORDERED: ISOVUE-370 76% 100ML VIAL As Ordered ONE (12:28)
[2021-10-11 12:59] LABS: BILIRUBIN,DIRECT 0.1 MG/DL (0.0-0.2); BILIRUBIN,TOTAL 0.6 MG/DL (0.2-1.0); TOTAL PROTEIN 7.7 GM/DL (6.4-8.2)
[2021-10-11 13:23] LABS: BASO % 0.3 % (0.0-1.0); EOS # 0.1 10^3/uL (0.0-0.5); EOS % 0.6 % (0.0-3.0); HEMATOCRIT 45.4 % (36.0-47.0); HEMOGLOBIN 14.6 g/dl (12.0-15.5); LYMPH # 0.5 10^3/uL (1.5-5.0); LYMPH % 3.4 % (24.0-44.0); MEAN CORPUSCULAR HEMOGLOBIN 28.7 pg (27.0-33.0); MEAN CORPUSCULAR HGB CONC 32.2 g/dl (32.0-36.5); MEAN CORPUSCULAR VOLUME 89.2 fl (80.0-96.0); MONO # 0.8 10^3/uL (0.0-0.8); MONO % 5.4 % (2.0-8.0); NEUTROPHILS # 12.5 10^3/uL (1.5-8.5); NEUTROPHILS % 89.8 % (36.0-66.0); PLATELET COUNT, AUTOMATED 202 10^3/uL (150-450); RED BLOOD COUNT 5.09 10^6/uL (4.00-5.40)
[2021-10-11] MEDS ORDERED: ONDA4TAB6 PO (13:55)
[2021-10-11 14:20] VITALS: BP 121/67
== END 2021-10-11 14:21 | disposition home or self-care (01) ==
LOC: M ED 10:45
DX: A08.4 Viral intestinal infection, unspecified (principal); M25.552 Pain in left hip; M54.50 Low back pain, unspecified; F41.9 Anxiety disorder, unspecified; R51.9 Headache, unspecified; Z88.6 Allergy status to analgesic agent; Z79.899 Other long term (current) drug therapy
CPT/HCPCS: 73502; 74177; 80047; 80076; 81001; 83690; 85025; 87086; 96361; 96374; 96375; 99284; J1885; J2405; Q9967

== ENCOUNTER 2021-12-10 05:25 | Emergency (ER) | payer OTHER ==
[2021-12-10 05:59] LABS: BASO # 0.1 10^3/uL (0.0-0.2); BASO % 0.8 % (0.0-1.0); EOS # 0.1 10^3/uL (0.0-0.5); EOS % 1.5 % (0.0-3.0); HEMATOCRIT 40.7 % (36.0-47.0); HEMOGLOBIN 13.5 g/dl (12.0-15.5); LYMPH # 2.3 10^3/uL (1.5-5.0); LYMPH % 27.5 % (24.0-44.0); MEAN CORPUSCULAR HGB CONC 33.2 g/dl (32.0-36.5); MEAN CORPUSCULAR VOLUME 87.5 fl (80.0-96.0); MONO # 0.8 10^3/uL (0.0-0.8); MONO % 9.3 % (2.0-8.0); NEUTROPHILS % 60.7 % (36.0-66.0); PLATELET COUNT, AUTOMATED 276 10^3/uL (150-450); RED BLOOD COUNT 4.65 10^6/uL (4.00-5.40); WHITE BLOOD COUNT 8.2 10^3/uL (4.0-10.0)
[2021-12-10 06:38] LABS: BLOOD UREA NITROGEN 10 MG/DL (7-18); CALCIUM LEVEL 9.1 MG/DL (8.5-10.1); CARBON DIOXIDE LEVEL 21 MEQ/L (21-32); CHLORIDE LEVEL 108 MEQ/L (98-107); CREATININE FOR GFR 0.94 MG/DL (0.55-1.30); FREE T4 0.93 NG/DL (0.76-1.46); GLOMERULAR FILTRATION RATE > 60.0 (>60); GLUCOSE, FASTING 88 MG/DL (70-100); MAGNESIUM LEVEL 2.1 MG/DL (1.8-2.4); POTASSIUM SERUM 3.5 MEQ/L (3.5-5.1); SODIUM LEVEL 136 MEQ/L (136-145)
[2021-12-10] MEDS ORDERED: NS 1,000 ML IV ONE (07:40)
[2021-12-10 07:57] LABS: CK-MB VALUE MASS < 1.0 NG/ML (<3.6); CPK CREATINE PHOSPHOKINASE 73 U/L (26-192); MB/CK RELATIVE INDEX 1.37 (< OR =4)
[2021-12-10 08:58] VITALS: BP 140/84
== END 2021-12-10 09:00 | disposition home or self-care (01) ==
LOC: M ED 05:25 → EDBD 05:25 → M ED 09:00
DX: R55 Syncope and collapse (principal); R07.9 Chest pain, unspecified; I45.10 Unspecified right bundle-branch block; R51.9 Headache, unspecified; F41.9 Anxiety disorder, unspecified; Z88.5 Allergy status to narcotic agent; Z79.899 Other long term (current) drug therapy